=== PATIENT | female | born 1955 ===

== ENCOUNTER 2023-07-24 09:00 | Outpatient (AMB) | payer MEDICARE, BC, SELFPAY ==
--- NOTE | 2023-07-24 09:03 | A.OFFVIS_ITS ---
Vital Signs 07/24/23 09:04 Height 5 ft 5 in Weight 170 lb 8 oz BMI 28.4 BP 120/70 Blood Pressure Location Rt brachial Position Sitting Respiration 17 Pulse 80 Pulse Source Pulse Oximeter Pulse Oximetry (%) 98 Oxygen Delivery Method Room Air Intake Visit Reasons: Follow up - LVM w/add Intake Note: Pt presents to the office for follow up for med refill. [place] Required: No Allergies amoxicillin Allergy (Mild, Verified 07/24/23 09:03) Unknown Penicillins Allergy (Mild, Verified 07/24/23 09:03) Unknown eggs Allergy (Mild, Uncoded 07/24/23 09:03) Unknown pet dander Allergy (Mild, Uncoded 07/24/23 09:03) Unknown Medication List - Last Reconciled 07/24/23 by Kelsey Stock MD baclofen 10 mg PO BEDTIME Ca carbonate-mag oxide-vit C 400 mg calcium -117 mg-167 mg tabs PO celecoxib 200 mg PO DAILY cholecalciferol (vitamin D3) 50 mcg PO DAILY gabapentin 1,800 mg PO DAILY L.acidoph, paracasei,B. lactis (Digestive Advantage Advanced Probiotic) cells PO loratadine (Allergy Relief (loratadine)) 5 mL PO BID mv,Ca,min-folic acid-vit K1 400-20 mcg (One-A-Day Women's 50 Plus) 1 tab PO DAILY naltrexone mg PO omega [id number]-[id number]-fish oil 60-90-500 mg (Fish Oil) 1 cap PO DAILY ruxolitinib 1.5% (Opzelura) 1 appl topical BID spironolactone 25 mg PO DAILY HPI Comments Details: 68y/o female comes for follow up of brachioradial pruritis. Her last visit with me was in Dec 2021. she is gabapentin 600mg qhs , 600mg q noon, baclofen 10 mg qhs is helping. she was seen by lock setter who gave her opzulera cream and it helps.she is not sure what triggers the sensations. she denies headaches . She denies neck pain . she has chronic back issues and is followed up at [facility]. [facility] Medical History Cervicalgia Restless legs syndrome (RLS) Spinal stenosis Chronic back pain Hyperlipidemia Depression GERD (gastroesophageal reflux disease) Dysthymia Fibromyalgia Anxiety Allergic rhinitis Acne Surgical History H/O abdominoplasty History of breast lift H/O section History of esophagogastroduodenoscopy (EGD) Hx of cholecystectomy Hx of colonoscopy History of back surgery Family History Father CAD (coronary artery disease) Hyperlipidemia Stroke Parkinson disease Alzheimer disease Mother CAD (coronary artery disease) COPD (chronic obstructive pulmonary disease) Family/Other Osteoporosis Physical Exam Vital Signs: Last Vital Signs Pulse 80 07/24/23 09:04 Resp 17 07/24/23 09:04 BP 120/70 07/24/23 09:04 Pulse Ox 98 07/24/23 09:04 Oxygen Delivery Method Room Air 07/24/23 09:04 BMI result Body Mass Index 28.4 Const General: cooperative, healthy appearing and comfortable Nutritional Appearance: average body habitus and well nourished Orientation/consciousness: patient oriented x3 Neuro General: patient oriented x3 Deep tendon reflexes (DTR's): Right triceps reflex intensity grade: 1+, Left triceps reflex intensity grade: 1+, Rt Biceps (C5, C6): 1+, Left biceps reflex intensity grade: 1+, Right brachioradialis reflex intensity grade: 1+, Left brachioradialis reflex intensity grade: 1+, Right patellar reflex intensity grade: 0 and Left patellar reflex intensity grade: 1+ Coordination: [id number] test normal Assessment & Plan Assessment & Plan (1) Painful paresthesia: Code(s): R20.2 - Paresthesia of skin; R52 - Pain, unspecified Category: Medical (2) Restless legs syndrome (RLS): Code(s): G25.81 - Restless legs syndrome Category: Medical (3) Chronic back pain: Code(s): M54.9 - Dorsalgia, unspecified; G89.29 - Other chronic pain Category: Medical (4) Cervicalgia: Code(s): M54.2 - Cervicalgia Category: Medical Plan Continue gabapentin 600mg tid and baclofen 10 mg qhs F/u [facility] F/u as needed Coding Level of Care Code Est Pt Level 4 (60544) Diagnoses Painful paresthesia R20.2; R52 Restless legs syndrome (RLS) G25.81 Chronic back pain M54.9; G89.29 Cervicalgia M54.2
[2023-07-24 09:04] VITALS: BP 120/70; PULSE 80; RESP 17; O2SAT 98; BMI 28.4
== END 2023-07-24 10:07 | disposition home or self-care (01) ==
PROVIDERS: PCP Nurse Practitioner Gerontology; Visit Provider Psychiatry & Neurology Neurology
DX: R20.2 Paresthesia of skin (principal); G25.81 Restless legs syndrome; M54.9 Dorsalgia, unspecified; G89.29 Other chronic pain; M54.2 Cervicalgia
CPT/HCPCS: 99214

== ENCOUNTER → 2023-07-24 09:00 | Outpatient (BNVA) | payer MEDICARE, BC, SELFPAY | PROVIDERS: PCP Nurse Practitioner Gerontology; Visit Provider Psychiatry & Neurology Neurology | DX: R20.2 Paresthesia of skin (principal); G25.81 Restless legs syndrome; M54.9 Dorsalgia, unspecified; M54.2 Cervicalgia | CPT/HCPCS: 99212 ==